=== PATIENT | male | born 1980 | race Asian ===

== ENCOUNTER 2017-05-20 13:13 | Emergency (ER) | payer OTHER ==
[~2017-05-20] VITALS: Ht 185.4 cm; Wt 79.4 kg
[2017-05-20 13:15] VITALS: TEMP 97.8
[2017-05-20 13:39] LABS: PLATELET COUNT 313 K/uL (142-355)
[2017-05-20 13:48] LABS: POTASSIUM 3.5 mmol/L (3.6-5.2)
[2017-05-20 14:07] VITALS: BP 153/93
== END 2017-05-20 14:26 | disposition short-term general hospital (02) ==
LOC: ED 13:13
PROVIDERS: Family Medicine
DX: S82.301B Unspecified fracture of lower end of right tibia, initial encounter for open fracture type I or II (principal); S82.831B Other fracture of upper and lower end of right fibula, initial encounter for open fracture type I or II; M54.5 Low back pain; M54.9 Dorsalgia, unspecified; W13.2XXA Fall from, out of or through roof, initial encounter; Y92.89 Other specified places as the place of occurrence of the external cause
CPT/HCPCS: 36415; 80053; 85027; 96360; 96365; 96368; 96375; 99285; J0692; J1170; J2550; J3370

== ENCOUNTER 2017-06-12 11:38 | Emergency (ER) | payer OTHER ==
[~2017-06-12] VITALS: Ht 185.4 cm; Wt 78.0 kg
[2017-06-12 11:46] VITALS: TEMP 98.2
[2017-06-12 13:17] VITALS: BP 130/70
== END 2017-06-12 13:21 | disposition home or self-care (01) ==
LOC: ED 11:38
DX: M79.604 Pain in right leg (principal); Z98.890 Other specified postprocedural states
CPT/HCPCS: 99282

== ENCOUNTER 2017-08-27 12:24 | Emergency (ER) | payer OTHER ==
[~2017-08-27] VITALS: Ht 185.4 cm; Wt 77.1 kg
[2017-08-27 12:48] VITALS: TEMP 98.3
[2017-08-27 14:42] VITALS: BP 146/78
== END 2017-08-27 14:43 | disposition home or self-care (01) ==
LOC: ED 12:24
DX: M79.604 Pain in right leg (principal)
CPT/HCPCS: 99283

== ENCOUNTER 2019-06-20 17:51 | Emergency (ER) | payer OTHER ==
[~2019-06-20] VITALS: Ht 185.4 cm; Wt 79.4 kg
[2019-06-20 19:08] LABS: PLATELET COUNT 224 K/uL (142-355)
[2019-06-20 19:15] LABS: POTASSIUM 3.2 mmol/L (3.6-5.2)
[2019-06-20 20:45] VITALS: BP 141/90; TEMP 97.9
== END 2019-06-20 20:45 | disposition short-term general hospital (02) ==
LOC: ED 17:51
PROVIDERS: Emergency Medicine Emergency Medical Services
PROC: 2W3MX1Z Immobilization of Left Lower Extremity using Splint (ICD-10-PCS; principal; 2019-06-20)
DX: S72.345A Nondisplaced spiral fracture of shaft of left femur, initial encounter for closed fracture (principal); V28.0XXA Motorcycle driver injured in noncollision transport accident in nontraffic accident, initial encounter
CPT/HCPCS: 36415; 80053; 85027; 93005; 96374; 96375; 96376; 99284; 99285; J1170; J2405

== ENCOUNTER 2019-06-20 20:54 | Outpatient (CLI) | payer OTHER | END 2019-06-20 22:16 | disposition short-term general hospital (02) | LOC: AMB 20:54 | DX: S72.92XA Unspecified fracture of left femur, initial encounter for closed fracture (principal) | CPT/HCPCS: A0425; A0427 ==

== ENCOUNTER 2020-09-25 10:20 | Emergency (ER) | payer OTHER ==
[~2020-09-25] VITALS: Ht 185.4 cm; Wt 77.1 kg
[2020-09-25 10:32] VITALS: BP 149/90; TEMP 98.3
[2020-09-25 11:12] LABS: PLATELET COUNT 266 K/uL (142-355)
[2020-09-25 11:21] LABS: POTASSIUM 4.4 mmol/L (3.6-5.2)
== END 2020-09-25 12:40 | disposition home or self-care (01) ==
LOC: ED 10:20
PROVIDERS: Hospitalist
DX: J06.9 Acute upper respiratory infection, unspecified (principal); Z03.818 Encounter for observation for suspected exposure to other biological agents ruled out; F17.210 Nicotine dependence, cigarettes, uncomplicated
CPT/HCPCS: 80048; 85027; 87502; 87635; 87651; 99283; U0003

== ENCOUNTER 2023-01-15 02:00 | Emergency (ER) | payer OTHER ==
[~2023-01-15] VITALS: Ht 185.4 cm; Wt 79.4 kg
[2023-01-15 02:20] VITALS: TEMP 97.3
[2023-01-15 04:05] VITALS: BP 142/72
== END 2023-01-15 04:05 | disposition home or self-care (01) ==
LOC: ED 02:00
DX: A08.4 Viral intestinal infection, unspecified (principal)
CPT/HCPCS: 96361; 96374; 99284; J2405